=== PATIENT | female | born 1955 | race Asian ===

== ENCOUNTER → 2017-12-02 | Outpatient (CLI) | payer OTHER ==
[~2017-12-02] MED LIST: ALBU8HFA4 IH; ALEN70TA48 PO; ASPI-556 PO; FOSI20TA3 PO; MELO-106 PO; NIFE-4 PO; SIMV20TA6 PO
== END | disposition home or self-care (01) ==
LOC: RADPV 10:22
PROVIDERS: ATTEND Internal Medicine Cardiovascular Disease
DX: I35.1 Nonrheumatic aortic (valve) insufficiency (principal); I50.30 Unspecified diastolic (congestive) heart failure
CPT/HCPCS: 93306

== ENCOUNTER → 2020-07-19 | Outpatient (CLI) | payer OTHER ==
[~2020-07-19] MED LIST changes: -ALEN70TA48 PO; +ALEN70TA65 PO; -FOSI20TA3 PO; +FOSI20TA66 PO; -NIFE-4 PO; +NIFE-64 PO; +SIMV-43 PO; -SIMV20TA6 PO
== END | disposition home or self-care (01) ==
LOC: RADPV 10:27
PROVIDERS: ATTEND Family Medicine
DX: M19.011 Primary osteoarthritis, right shoulder (principal)
CPT/HCPCS: 73030-TC

== ENCOUNTER → 2022-05-27 | Outpatient (CLI) | payer MEDICARE | END | disposition home or self-care (01) | LOC: RADMN 14:22 | PROVIDERS: ATTEND Family Medicine | DX: M19.012 Primary osteoarthritis, left shoulder (principal); M85.812 Other specified disorders of bone density and structure, left shoulder; M16.12 Unilateral primary osteoarthritis, left hip; M25.512 Pain in left shoulder; M25.552 Pain in left hip | CPT/HCPCS: 73503 ==

== ENCOUNTER → 2022-10-21 | Outpatient (CLI) | payer MEDICARE, OTHER | END | disposition home or self-care (01) | LOC: RADMN 12:30 | PROVIDERS: ATTEND Family Medicine | DX: R90.82 White matter disease, unspecified (principal); R51.9 Headache, unspecified | CPT/HCPCS: 70450 ==

== ENCOUNTER → 2024-02-17 | Outpatient (CLI) | payer MEDICARE, OTHER | END | disposition home or self-care (01) | LOC: RADPV 07:58 | PROVIDERS: ATTEND Family Medicine | DX: K80.20 Calculus of gallbladder without cholecystitis without obstruction (principal); N28.89 Other specified disorders of kidney and ureter; Z90.710 Acquired absence of both cervix and uterus | CPT/HCPCS: 76700; 76856 ==